=== PATIENT | male | born 1945 | race Caucasian/White ===

== ENCOUNTER 2020-12-02 18:38 | Inpatient (IN) ==
[2020-12-02] MEDS ORDERED: Naloxone 0.4 MG/ML INJ IVP PRN (20:25)
[2020-12-02] MEDS ORDERED: Ondansetron 4 MG/2 ML VIAL IVP PRN (20:25)
[2020-12-02] MEDS ORDERED: Acetaminophen 325 MG TABLET PO PRN (20:25)
[2020-12-02 22:42] LABS: Adenovirus Not Detected (Not Detect); Bordetella Pertussis Not Detected (Not Detect); Chlamydophila pneumoniae Not Detected (Not Detect); Coronavirus 229E Not Detected (Not Detect); Coronavirus HKU1 Not Detected (Not Detect); Coronavirus NL63 Not Detected (Not Detect); Coronavirus OC43 Not Detected (Not Detect); Human Metapneumovirus Not Detected (Not Detect); Human Rhinovirus/Enterovirus Not Detected (Not Detect); Influenza A Subtype 2009 H1 Not Detected (Not Detect); Influenza B Not Detected (Not Detect); Mycoplasma pneumoniae Not Detected (Not Detect); Parainfluenza Virus 1 Not Detected (Not Detect); Parainfluenza Virus 2 Not Detected (Not Detect); Parainfluenza Virus 3 Not Detected (Not Detect); Parainfluenza Virus 4 Not Detected (Not Detect); Respiratory Syncytial Virus Not Detected (Not Detect); SARS-CoV-2 Not Detected (Not Detect)
[2020-12-03] MEDS ORDERED: GI Cocktail 40 ML EACH PO ONE (01:03)
[2020-12-03] MEDS: Famotidine 20 MG TABLET PO SCH ×3 (01:10→20:18)
[2020-12-03 02:44] LABS: Basophils % 0.1 %; Hematocrit 47.6 % (37.5-50.1); Hemoglobin 15.3 g/dL (12.9-16.9); Immature Granulocytes % 0.8 % (0-4); Lymphocytes # 0.9 K/mcL (0.6-4.6); Mean Corpuscular HGB Conc 32.1 g/dL (31.6-35.5); Mean Corpuscular Hemoglobin 32.7 pg (28.0-33.3); Mean Corpuscular Volume 101.7 fL (83.0-100.0); Mean Platelet Volume 10.7 fL (9.4-12.4); Monocytes # 0.2 K/mcL (0.0-1.3); Monocytes % 2.5 %; Neutrophils # 8.5 K/mcL (1.6-8.9); Platelet Count 185 K/mcL (140-400); Red Blood Count 4.68 M/mcL (4.19-5.50); Red Cell Distribution Width 14.9 % (11.5-14.5); Segmented Neutrophils % 87.6 %; White Blood Count 9.8 K/mcL (4.3-11.1)
[2020-12-03 02:51] LABS: Prothrombin Time 11.4 Seconds (9.4-12.1)
[2020-12-03 03:08] LABS: Alanine Aminotransferase 14 Units/L (7-52); Albumin 3.5 g/dL (3.5-5.7); Albumin/Globulin Ratio 1.3 (1.1-2.2); Alkaline Phosphatase 59 Units/L (34-104); Aspartate Amino Transferase 14 Units/L (13-39); BUN/Creatinine Ratio 23 (6-26); Bilirubin,Total 0.3 mg/dL (0.3-1.0); Blood Urea Nitrogen 17 mg/dL (8-23); Calcium 8.6 mg/dL (8.6-10.3); Carbon Dioxide 39 mEq/L (23-29); Chloride 91 mEq/L (98-107); Globulin 2.6 g/dL (2.4-3.5); Glucose 226 mg/dL (70-105); Magnesium 2.2 mg/dL (1.6-2.6); Osmolality,Calculated 289 (280-300); Potassium 4.3 mEq/L (3.5-5.1); Sodium 135 mEq/L (136-145); Total Protein 6.1 g/dL (6.4-8.9); eGFR For African Americans > 60 (> 60); eGFR For Non-African Americans > 60 (> 60)
[2020-12-03 03:18] LABS: Thyroid Stimulating Hormone 0.943 mcIU/mL (0.340-5.600)
[2020-12-03] MEDS: *HR* Heparin 5,000 UNIT/ML VIAL SQ SCH ×2 (05:35→18:32)
[2020-12-03] MEDS ORDERED: MethylPREDNISolone 40 MG/ML VIAL IVP SCH (06:00)
[2020-12-03] MEDS: levoFLOXacin 750 MG/150 ML 750 MG/150 ML BAG IVPB SCH (09:55)
[2020-12-03] MEDS: predniSONE 20 MG TABLET PO SCH (09:55)
[2020-12-03] MEDS: Ipratropium/Albuterol Neb 3 ML IH PRN ×2 (10:12→15:45)
[2020-12-03] MEDS: Gabapentin 300 MG CAPSULE PO SCH (20:18)
[2020-12-03] MEDS: Ipratropium/Albuterol Neb 3 ML IH SCH ×2 (20:33→23:45)
[2020-12-04 01:18] LABS: Basophils % 0.1 %; Hematocrit 44.8 % (37.5-50.1); Hemoglobin 14.7 g/dL (12.9-16.9); Immature Granulocytes % 0.8 % (0-4); Lymphocytes # 2.1 K/mcL (0.6-4.6); Lymphocytes % 9.5 %; Mean Corpuscular HGB Conc 32.8 g/dL (31.6-35.5); Mean Corpuscular Volume 100.7 fL (83.0-100.0); Mean Platelet Volume 10.8 fL (9.4-12.4); Monocytes # 1.4 K/mcL (0.0-1.3); Monocytes % 6.6 %; Neutrophils # 18.1 K/mcL (1.6-8.9); Platelet Count 169 K/mcL (140-400); Red Blood Count 4.45 M/mcL (4.19-5.50); Red Cell Distribution Width 14.7 % (11.5-14.5); White Blood Count 21.8 K/mcL (4.3-11.1)
[2020-12-04 01:40] LABS: BUN/Creatinine Ratio 26 (6-26); Blood Urea Nitrogen 19 mg/dL (8-23); Calcium 8.4 mg/dL (8.6-10.3); Carbon Dioxide 37 mEq/L (23-29); Chloride 95 mEq/L (98-107); Glucose 113 mg/dL (70-105); Magnesium 2.3 mg/dL (1.6-2.6); Osmolality,Calculated 283 (280-300); Potassium 4.4 mEq/L (3.5-5.1); Sodium 135 mEq/L (136-145); eGFR For African Americans > 60 (> 60); eGFR For Non-African Americans > 60 (> 60)
[2020-12-04] MEDS: Ipratropium/Albuterol Neb 3 ML IH SCH ×6 (04:00→23:31)
[2020-12-04] MEDS: *HR* Heparin 5,000 UNIT/ML VIAL SQ SCH ×2 (05:26→19:35)
[2020-12-04] MEDS ORDERED: predniSONE 20 MG TABLET PO SCH (09:00)
[2020-12-04] MEDS: Gabapentin 300 MG CAPSULE PO SCH ×3 (10:12→22:15)
[2020-12-04] MEDS: predniSONE 20 MG TABLET PO SCH (10:13)
[2020-12-04] MEDS: Aspirin Enteric Coated 81 MG Tablet PO SCH (10:13)
[2020-12-04] MEDS: levoFLOXacin 750 MG/150 ML 750 MG/150 ML BAG IVPB SCH (10:13)
[2020-12-04] MEDS: amLODIPine 5 MG TABLET PO SCH (10:13)
[2020-12-04] MEDS: Famotidine 20 MG TABLET PO SCH ×2 (10:13→22:15)
[2020-12-04] MEDS: Nicotine 21 MG PATCH.TD24 TD SCH (10:14)
[2020-12-05] MEDS: Ipratropium/Albuterol Neb 3 ML IH SCH ×2 (04:30→07:27)
[2020-12-05] MEDS: *HR* Heparin 5,000 UNIT/ML VIAL SQ SCH (04:46)
[2020-12-05 05:41] LABS: Basophils % 0.2 %; Eosinophils % 0.1 %; Hematocrit 43.7 % (37.5-50.1); Hemoglobin 14.1 g/dL (12.9-16.9); Immature Granulocytes % 0.7 % (0-4); Lymphocytes # 2.5 K/mcL (0.6-4.6); Lymphocytes % 16.8 %; Mean Corpuscular HGB Conc 32.3 g/dL (31.6-35.5); Mean Corpuscular Hemoglobin 32.7 pg (28.0-33.3); Mean Corpuscular Volume 101.4 fL (83.0-100.0); Mean Platelet Volume 10.6 fL (9.4-12.4); Monocytes # 1.1 K/mcL (0.0-1.3); Monocytes % 7.3 %; Platelet Count 163 K/mcL (140-400); Red Blood Count 4.31 M/mcL (4.19-5.50); Red Cell Distribution Width 15.4 % (11.5-14.5); Segmented Neutrophils % 74.9 %; White Blood Count 14.6 K/mcL (4.3-11.1)
[2020-12-05 06:24] LABS: BUN/Creatinine Ratio 27 (6-26); Blood Urea Nitrogen 25 mg/dL (8-23); Calcium 8.4 mg/dL (8.6-10.3); Carbon Dioxide 36 mEq/L (23-29); Chloride 98 mEq/L (98-107); Glucose 110 mg/dL (70-105); Magnesium 2.1 mg/dL (1.6-2.6); Osmolality,Calculated 293 (280-300); Potassium 4.1 mEq/L (3.5-5.1); Sodium 139 mEq/L (136-145); eGFR For African Americans > 60 (> 60); eGFR For Non-African Americans > 60 (> 60)
[2020-12-05 07:22] VITALS: BP 166/83
[2020-12-05] MEDS: Famotidine 20 MG TABLET PO SCH (08:38)
[2020-12-05] MEDS: amLODIPine 5 MG TABLET PO SCH (08:38)
[2020-12-05] MEDS: Gabapentin 300 MG CAPSULE PO SCH (08:38)
[2020-12-05] MEDS: Aspirin Enteric Coated 81 MG Tablet PO SCH (08:39)
[2020-12-05] MEDS: predniSONE 20 MG TABLET PO SCH (08:39)
[2020-12-05] MEDS: levoFLOXacin 750 MG/150 ML 750 MG/150 ML BAG IVPB SCH (08:39)
[2020-12-05] MEDS: Nicotine 21 MG PATCH.TD24 TD SCH (08:54)
== END 2020-12-05 10:40 | disposition home or self-care (01) | DRG 871 ==
LOC: 2NENU → SUATTDRO 20:00
PROVIDERS: ADMIT Internal Medicine; ATTEND Pharmacist